=== PATIENT | male | born 1980 | race Caucasian/White ===

== ENCOUNTER 2016-12-28 08:15 | Outpatient (CLI) | payer OTHER | END 2016-12-28 08:16 | disposition home or self-care (01) | DX: E78.00 Pure hypercholesterolemia, unspecified (principal) ==

== ENCOUNTER 2018-08-01 02:45 | Outpatient (CLI) | payer OTHER | END 2018-08-01 02:46 | disposition critical access hospital (66) | LOC: EMS 02:45 | PROVIDERS: ATTEND Surgery | DX: S01.01XA Laceration without foreign body of scalp, initial encounter (principal); W01.0XXA Fall on same level from slipping, tripping and stumbling without subsequent striking against object, initial encounter; Y93.01 Activity, walking, marching and hiking; Y92.009 Unspecified place in unspecified non-institutional (private) residence as the place of occurrence of the external cause | CPT/HCPCS: A0425; A0429 ==

== ENCOUNTER 2018-08-01 03:15 | Emergency (ER) | payer OTHER ==
--- NOTE | 2018-08-01 03:24 | ED Physician Documentation ---
PD HPI HEAD INJURY - Chief complaint Chief Complaint: Laceration - History obtained from History obtained from: Patient, EMS - History of Present Illness Mechanism of head injury: Fell, Laceration Where head injury occurred: Home Timing - onset: Today Location of injury: Left, Front Associated symptoms: LOC Similar symptoms before: Has not had sx before Recently seen: Not recently seen - Additional information Additional information: Patient is a 38 year old male who is presenting to the emergency department after sustaining a head laceration. patient is a sleep walker and tonight was sleep walking and tripped on a dog water bowl. Patient fell forward hitting his head with questionable loc due to the sleepwalking. Patient sustained a lacer ation to his left forehead. Review of Systems Ten Systems: 10 systems reviewed and negative Skin: reports: Laceration (s) Neurologic: reports: Head injury, LOC PD PAST MEDICAL HISTORY - Past Medical History Past Medical History: No Cardiovascular: None Respiratory: None Neuro: None Endocrine/Autoimmune: None GI: None : None HEENT: None Psych: None Musculoskeletal: None Derm: None - Past Surgical History Past Surgical History: Yes - Present Medications Home Medications: Ambulatory Orders Medication Instructions Recorded Confirmed Cephalexin [Keflex] 500 mg PO QID #28 capsule 08/23/16 Clobetasol Propionate 1 applic TP BID #30 oint...g. 08/23/16 Dexamethasone [Decadron] 4 mg PO DAILY #5 tablet 08/23/16 Mupirocin 1 applic TP TID #15 oint...g. 08/23/16 No Known Home Medications 08/01/18 - Allergies Allergies/Adverse Reactions: Allergies Allergy/AdvReac Type Severity Reaction Status Date / Time No Known Drug Allergies Allergy Unverified 08/01/18 03:12 - Social History Does the pt smoke?: Yes Smoking Status: Current every day smoker Does the pt drink ETOH?: Yes ETOH Use: Beer Does the pt have substance abuse?: No Substance Use and Type: Marijuana - Immunizations Immunizations are current?: Yes - POLST Patient has POLST: No PD ED PE NORMAL - Vitals Vital signs reviewed: Yes - General General: Alert and oriented X 3 - HEENT HEENT: PERRL - Cardiac Cardiac: RRR - Respiratory Respiratory: No respiratory distress - Derm Derm: Normal color, Warm and dry - Extremities Extremities: No deformity - Neuro Neuro: Alert and oriented X 3, No motor deficit, Normal speech Eye Opening: Spontaneous - Psych Psych: Normal mood PD ED PE EXPANDED - HEENT HEENT Visual: 1 - laceration (3.5cm laceration) Results - Vitals Vitals: Vital Signs - 24 hr 08/01/18 03:08 Temperature 36.6 C Heart Rate 60 Respiratory 14 Rate Blood Pressure 136/91 H O2 Saturation 98 Oxygen O2 Source Room air - Rads (name of study) ct head Radiology: Final report received (no acute intracranial pathology) Procedures - Laceration (location) left forehead Length in cm: 3.5 Wound type: Linear Wound Preparation: Hibiclens Skin layer closure: Dermabond, Steri strips Other: Patient tolerated well, No complications, Neurovascular intact, Tetanus UTD Complexity: Simple PD MEDICAL DECISION MAKING - ED course Complexity details: reviewed old records, reviewed results, re-evaluated patient, considered differential, d/w patient, d/w family ED course: Patient was seen and examined at bedside. imaging was ordered. when patient returned from imaging wound was cleaned and repaired as described above. there were no significant abnormalities on the imaging. patient required no further work up and was stable for discharge with outpatient follow up. - Sepsis Event Vital Signs: Vital Signs - 24 hr 08/01/18 03:08 Temperature 36.6 C Heart Rate 60 Respiratory 14 Rate Blood Pressure 136/91 H O2 Saturation 98 Oxygen O2 Source Room air Departure - Departure Disposition: 01 Home, Self Care Clinical Impression: Laceration Condition: Good Instructions: ED Laceration All Follow-Up: Galina Gordon PA-C [Primary Care Provider] - As Needed Comments: There was no acute fracture or intracranial pathology. You will need to keep the wound clean and dry. there are steristrips and dermabond on the wound. if one of the strips comes out you should replace it with another steri strip. you can ice the wound and take motrin or tylenol as needed for pain. You should follow up with your doctor for persistent symptoms. Forms: Activity restrictions
--- NOTE | 2018-08-01 04:06 | CT Report ---
Reason: fall, head lac, with loc Procedure Date: 08/01/2018 Accession Number: [id number] / [id number] Procedure: CT - Head W/O CPT Code: FULL RESULT: EXAM: CT HEAD EXAM DATE: 08/01/2018 03:42 AM. CLINICAL HISTORY: Head pain, fall. COMPARISON: None. TECHNIQUE: Multiaxial CT images were obtained from the foramen magnum to the vertex. Reformats: Coronal. IV contrast: None. In accordance with CT protocol optimization, one or more of the following dose reduction techniques were utilized for this exam: automated exposure control, adjustment of mA and/or KV based on patient size, or use of iterative reconstructive technique. FINDINGS: Parenchyma: No intraparenchymal hemorrhage. No evidence of mass, midline shift, or CT findings of infarction. Villareal-white differentiation is distinct. Extraaxial Spaces: Normal for age. No subdural or epidural collections identified. Ventricles: Normal in size and position. Sinuses and Orbits: Imaged paranasal sinuses, orbits, and mastoids show no significant abnormality. Bones: In left frontal scalp laceration is present without an underlying calvarial fracture. IMPRESSION: 1. No acute intracranial process. 2. Left frontal scalp laceration without calvarial fracture. [facility]
[2018-08-01 04:27] VITALS: BP 138/92
== END 2018-08-01 04:28 | disposition home or self-care (01) ==
LOC: EDBD
DX: S01.81XA Laceration without foreign body of other part of head, initial encounter (principal); W18.09XA Striking against other object with subsequent fall, initial encounter; Y93.01 Activity, walking, marching and hiking; Y93.84 Activity, sleeping; F17.200 Nicotine dependence, unspecified, uncomplicated
CPT/HCPCS: 12013; 70450; 99283

== ENCOUNTER 2018-10-09 08:11 | Outpatient (CLI) | payer OTHER ==
[2018-10-09 10:41] LABS: BASOPHILS % (AUTO) 0.4 %; EOSINOPHILS # (AUTO) 0.6 10^3/uL (0.0-0.7); EOSINOPHILS % (AUTO) 8.5 %; HGB - HEMOGLOBIN 15.8 g/dL (14.0-18.0); LYMPHOCYTES # (AUTO) 0.9 10^3/uL (1.5-3.5); LYMPHOCYTES % (AUTO) 13.5 %; MEAN CORPUSCULAR HEMOGLOBIN 32.8 pg (27.0-31.0); MEAN CORPUSCULAR HGB CONC 34.7 g/dL (32.0-36.0); MEAN CORPUSCULAR VOLUME 94.5 fL (80.0-94.0); MEAN PLATELET VOLUME 8.1 fL (7.4-11.4); MONOCYTES # (AUTO) 0.8 10^3/uL (0.0-1.0); NEUTROPHILS # (AUTO) 4.6 10^3/uL (1.5-6.6); NEUTROPHILS % (AUTO) 66.6 %; PLT - PLATELET COUNT 198 10^3/uL (130-450); RED BLOOD COUNT 4.82 10^6/uL (4.70-6.10); RED CELL DISTRIBUTION WIDTH 12.4 % (12.0-15.0); WHITE BLOOD COUNT 6.9 x10^3/uL (4.8-10.8)
[2018-10-09 11:02] LABS: ALBUMIN 4.1 g/dL (3.2-5.5); ALBUMIN/GLOBULIN RATIO 1.4 (1.0-2.2); ALKALINE PHOSPHATASE 51 IU/L (42-121); ALT ALANINE AMINOTRANSFERASE 16 IU/L (10-60); AST ASPARTATE AMINOTRANSFERASE 18 IU/L (10-42); BILIRUBIN,TOTAL 0.6 mg/dL (0.2-1.0); BUN - BLOOD UREA NITROGEN 19 mg/dL (6-20); CALCIUM 8.6 mg/dL (8.5-10.3); CARBON DIOXIDE - CO2 26 mmol/L (21-32); CHLORIDE 104 mmol/L (101-111); CHOL/HDL RATIO 2.9 (<5.0); CHOLESTEROL 165 mg/dL; CREATININE 0.9 mg/dL (0.6-1.2); GFR - MDRD 95 (>89); GLUCOSE 98 mg/dL (70-100); HDL CHOLESTEROL 56 mg/dL; LDL CHOLESTEROL,CALCULATED 96 mg/dL; LDL/HDL RATIO 1.7 (<3.6); SODIUM 137 mmol/L (135-145); VLDL CHOLESTEROL 13 mg/dL
== END 2018-10-09 08:12 | disposition home or self-care (01) ==
LOC: LAB.F 08:11
PROVIDERS: ATTEND Physician Assistant Medical
DX: Z51.81 Encounter for therapeutic drug level monitoring (principal); E78.5 Hyperlipidemia, unspecified
CPT/HCPCS: 36415; 80053; 80061; 83721; 85025

== ENCOUNTER → 2019-06-28 | Outpatient (CLI) | payer OTHER | LOC: LAB.WCP 08:00 | PROVIDERS: ATTEND Family Medicine | DX: L03.115 Cellulitis of right lower limb (principal) | CPT/HCPCS: 87070; 87181; 87205 ==

== ENCOUNTER 2021-01-12 07:00 | Outpatient (CLI) | payer OTHER ==
--- NOTE | 2021-01-12 13:09 | XRAY Report ---
PROCEDURE: Finger(s) RT INDICATIONS: CRUSHING INJ RIGHT INDEX FINGER TECHNIQUE: PA view of the hand and 2 views of the index finger. COMPARISON: None. FINDINGS: Bones: There is a minimally displaced and comminuted hairline fracture of the second proximal phalang eal shaft. No definite intra-articular extension is seen. No suspicious bony lesions. Postsurgical c hanges are seen at the fourth proximal phalanx. Chronic fracture deformity is seen in the fifth metac arpal. Soft tissues: No suspicious soft tissue calcifications. Soft tissue edema is seen at the site of th e reported laceration in the second finger overlying the proximal phalangeal fracture. IMPRESSION: Minimally displaced and comminuted fracture of the second proximal phalangeal shaft with overlying so ft tissue edema. Reviewed by: Phuc Morrow MD on 01/12/2021 1:07 PM PST Approved by: Phuc Morrow MD on 01/12/2021 1:07 PM PST Station ID: [id number]
== END 2021-01-12 23:59 | disposition home or self-care (01) ==
LOC: DI.S 07:00
PROVIDERS: ATTEND Physician Assistant Medical
DX: S62.610A Displaced fracture of proximal phalanx of right index finger, initial encounter for closed fracture (principal)